=== PATIENT | female | born 1960 | race Caucasian/White ===

== ENCOUNTER 2016-07-18 10:54 | Outpatient (CLI) | payer BC | END 2016-07-18 21:11 | disposition home or self-care (01) | LOC: SMA 10:54 | PROVIDERS: ATTEND General Practice | DX: Z12.31 Encounter for screening mammogram for malignant neoplasm of breast (principal) | CPT/HCPCS: 77067; G0202 ==

== ENCOUNTER 2019-02-19 11:14 | Outpatient (CLI) | payer SELFPAY | END 2019-02-19 20:01 | disposition home or self-care (01) | LOC: SMA 11:14 | PROVIDERS: ATTEND Internal Medicine | DX: Z12.31 Encounter for screening mammogram for malignant neoplasm of breast (principal) | CPT/HCPCS: 77067 ==